=== PATIENT | female | born 1970 | race Hispanic/Latino ===

== ENCOUNTER 2023-01-14 11:07 | Inpatient (IN) | payer OTHER ==
[~2023-01-14] VITALS: Ht 139.7 cm; Wt 90.7 kg
[~2023-01-14 11:07] MED LIST: HEPARIN 10,000 UNIT/10ML (1,000 UNIT/ML) VIAL IV ONE; LIDOCAINE HCL 1% 10 ML VIAL MISC ONE
[2023-01-14 14:00] VITALS: BP 137/63; PULSE 63; RESP 18
[2023-01-14 14:10] VITALS: O2SAT 100
[2023-01-14] MEDS ORDERED: ZOLPIDEM TARTRATE 5 MG TAB PO PRN (14:30)
[2023-01-14] MEDS ORDERED: NITROGLYCERIN 0.4 MG SL TAB SL PRN (14:30)
[2023-01-14] MEDS ORDERED: LACTULOSE 20 GM/30 ML UDCUP PO PRN (14:30)
[2023-01-14] MEDS ORDERED: DiphenhydrAMINE HCL 50 MG/ML VIAL IV PRN (14:30)
[2023-01-14] MEDS ORDERED: POTASSIUM CHLORIDE 20MEQ/100ML 100 ML IV PRN ×2 (14:30)
[2023-01-14] MEDS ORDERED: ALBUTEROL 0.083% 2.5 MG/3 ML INH IH PRN (14:30)
[2023-01-14] MEDS ORDERED: ONDANSETRON 4MG INJ IV PRN (14:30)
[2023-01-14] MEDS ORDERED: DEXTROSE 50%-WATER 50 ML DISP.SYRIN IV PRN (14:30)
[2023-01-14] MEDS ORDERED: HYDRALAZINE 25MG TABLET PO PRN (14:30)
[2023-01-14] MEDS ORDERED: ALPRAZOLAM 0.5 MG TABLET PO PRN (14:30)
[2023-01-14] MEDS ORDERED: GUAIFENESIN SUGAR-FREE 100 MG/5 ML UDCUP PO PRN (14:30)
[2023-01-14] MEDS ORDERED: DOCUSATE SODIUM 100 MG CAP PO PRN (14:30)
[2023-01-14] MEDS ORDERED: GUAIFENESIN-DM 200/20 MG 10 ML PO PRN (14:30)
[2023-01-14] MEDS ORDERED: ACETAMINOPHEN 325 MG TAB PO PRN (14:30)
[2023-01-14] MEDS ORDERED: DIPHENHYDRAMINE HCL 25 MG CAPSULE PO PRN (14:30)
[2023-01-14] MEDS ORDERED: LOPERAMIDE HCL 2 MG CAP PO PRN (14:30)
[2023-01-14] MEDS ORDERED: POLYETHYLENE GLYCOL 3350 17 GM POWD.PACK PO PRN (14:30)
[2023-01-14] MEDS ORDERED: GLUCAGON 1MG KIT 1 MG ML IM PRN (14:30)
[2023-01-14] MEDS ORDERED: POTASSIUM CHLORIDE 10% ELIXIR 20 MEQ/15 ML UDCUP PO PRN (14:30)
[2023-01-14 15:04] LABS: BASOPHILS % (AUTO) 0.3 % (0.0-5.0); HEMATOCRIT 35.9 % (36-48); LYMPHOCYTES % (AUTO) 27.1 % (21.0-51.0); MEAN CORPUSCULAR HEMOGLOBIN 27.3 pg (27.0-33.0); MEAN CORPUSCULAR HGB CONC 32.9 g/dL (32.0-36.0); MEAN CORPUSCULAR VOLUME 83.1 fL (79-99); NEUTROPHILS % (AUTO) 64.1 % (40.0-77.0); PLATELET COUNT (AUTO) 230 K/uL (130-400); RED BLOOD CELL COUNT(AUTO) 4.32 MIL/uL (4.00-5.50); RED CELL DISTRIBUTION WIDTH 14.7 % (11.0-15.5); WHITE BLOOD COUNT (AUTO) 10.5 K/uL (4.8-10.8)
[2023-01-14] MEDS ORDERED: LOSA50TA64 PO (15:09)
[2023-01-14] MEDS ORDERED: AMLO-257 PO (15:09)
[2023-01-14] MEDS ORDERED: METF-444 PO (15:09)
[2023-01-14] MEDS ORDERED: [UNRECOGNIZED DRUG - OTHER] PO (15:09)
[2023-01-14] MEDS: HEPARIN 25,000 UNITS/250ML D5W 250 ML IV SCH (15:35)
[2023-01-14 15:38] LABS: CREATININE 0.6 mg/dL (0.5-1.5); POTASSIUM 3.8 mmol/L (3.5-5.1); THYROID STIMULATING HORMONE 0.01 uIU/mL (0.36-3.74)
[2023-01-14 15:51] LABS: ALBUMIN 3.6 g/dL (3.5-5.0); MAGNESIUM 1.8 mg/dL (1.80-2.40); PHOSPHORUS 3.9 mg/dL (2.5-4.9); TOTAL PROTEIN, SERUM 7.4 g/dL (6.0-8.3)
[2023-01-14] MEDS: MAGNESIUM 2GM PREMIX 50ML 50 ML IV PRN (16:34)
[2023-01-14 16:45] VITALS: BP 131/63; PULSE 63; RESP 20
[2023-01-14] MEDS: INSULIN HUMULIN R 100 UNIT/ML 3ML SQ SCH ×2 (17:13→21:42)
[2023-01-14 20:00] VITALS: O2SAT 100
[2023-01-14 20:02] VITALS: BP 144/75; PULSE 71; RESP 20
[2023-01-14] MEDS: FAMOTIDINE 20MG VIAL IV SCH (20:21)
[2023-01-14] MEDS: ATORVASTATIN 40 MG TABLET PO SCH (20:21)
[2023-01-14] MEDS: CARVEDILOL 3.125 MG TABLET PO SCH (20:22)
[2023-01-14] MEDS: ACETAMINOPHEN 325 MG TAB PO PRN (20:22)
[2023-01-14] MEDS ORDERED: INSULIN GLARGINE 100 UNITS/ML 10 ML VIAL SQ ONE (21:00)
[2023-01-14 23:43] VITALS: BP 130/68; PULSE 58; RESP 20
[2023-01-15] VITALS (7 sets, daily range): BP systolic 129–157; BP diastolic 72–77; PULSE 57–73; RESP 16–20; O2SAT 98–100
[2023-01-15] MEDS: NITROGLYCERIN 1GM OINT 1 INCH/1GM TD SCH ×4 (01:09→17:48)
[2023-01-15] MEDS: MAGNESIUM 2GM PREMIX 50ML 50 ML IV PRN (06:18)
[2023-01-15] MEDS: INSULIN HUMULIN R 100 UNIT/ML 3ML SQ SCH ×4 (06:18→20:42)
[2023-01-15] MEDS: LISINOPRIL 10 MG TABLET PO SCH (08:24)
[2023-01-15] MEDS: ASPIRIN 81MG CHEW TAB PO SCH (08:25)
[2023-01-15] MEDS: CARVEDILOL 3.125 MG TABLET PO SCH ×2 (08:25→20:42)
[2023-01-15] MEDS: DOCUSATE SODIUM 100 MG CAP PO SCH (08:26)
[2023-01-15] MEDS: POLYETHYLENE GLYCOL 3350 17 GM POWD.PACK PO SCH (08:26)
[2023-01-15] MEDS: FAMOTIDINE 20MG VIAL IV SCH ×2 (09:34→20:41)
[2023-01-15] MEDS: HEPARIN 25,000 UNITS/250ML D5W 250 ML IV SCH (15:23)
[2023-01-15] MEDS: ATORVASTATIN 40 MG TABLET PO SCH (20:41)
[2023-01-16] VITALS (9 sets, daily range): BP systolic 114–155; BP diastolic 57–77; PULSE 55–72; RESP 18–20; O2SAT 96–98
[2023-01-16] MEDS: NITROGLYCERIN 1GM OINT 1 INCH/1GM TD SCH ×4 (00:16→18:45)
[2023-01-16] MEDS: INSULIN HUMULIN R 100 UNIT/ML 3ML SQ SCH ×4 (06:19→20:54)
[2023-01-16] MEDS: FAMOTIDINE 20MG VIAL IV SCH ×2 (07:47→20:49)
[2023-01-16] MEDS: DOCUSATE SODIUM 100 MG CAP PO SCH (07:47)
[2023-01-16] MEDS: POLYETHYLENE GLYCOL 3350 17 GM POWD.PACK PO SCH (07:47)
[2023-01-16] MEDS: ASPIRIN 81MG CHEW TAB PO SCH (07:48)
[2023-01-16] MEDS: LISINOPRIL 10 MG TABLET PO SCH (07:48)
[2023-01-16] MEDS: CARVEDILOL 3.125 MG TABLET PO SCH ×2 (12:23→20:48)
[2023-01-16] MEDS: HEPARIN 25,000 UNITS/250ML D5W 250 ML IV SCH (15:18)
[2023-01-16] MEDS: ATORVASTATIN 40 MG TABLET PO SCH (20:49)
[2023-01-17] VITALS (10 sets, daily range): BP systolic 119–177; BP diastolic 62–83; PULSE 55–80; RESP 18–20; O2SAT 96–98
[2023-01-17] MEDS: NITROGLYCERIN 1GM OINT 1 INCH/1GM TD SCH ×5 (00:19→23:45)
[2023-01-17 00:38] LABS: INR 0.94 (0.85-1.15)
[2023-01-17 00:39] LABS: PARTIAL THROMBOPLASTIN TIME 57.1 SEC (26.3-35.5)
[2023-01-17 03:50] LABS: BASOPHILS % (AUTO) 0.2 % (0.0-5.0); EOSINOPHILS % (AUTO) 1.7 % (0.0-8.0); HEMATOCRIT 30.6 % (36-48); LYMPHOCYTES % (AUTO) 23.2 % (21.0-51.0); MEAN CORPUSCULAR HEMOGLOBIN 27.5 pg (27.0-33.0); MEAN CORPUSCULAR VOLUME 83.4 fL (79-99); MONOCYTES % (AUTO) 8.9 % (3.0-13.0); NEUTROPHILS % (AUTO) 65.7 % (40.0-77.0); PLATELET COUNT (AUTO) 219 K/uL (130-400); RED BLOOD CELL COUNT(AUTO) 3.67 MIL/uL (4.00-5.50); RED CELL DISTRIBUTION WIDTH 14.8 % (11.0-15.5); WHITE BLOOD COUNT (AUTO) 10.6 K/uL (4.8-10.8)
[2023-01-17 03:57] LABS: CREATININE 0.5 mg/dL (0.5-1.5); POTASSIUM 3.8 mmol/L (3.5-5.1)
[2023-01-17 04:01] LABS: INR 0.97 (0.85-1.15); PROTHROMBIN TIME 11.3 SEC (9.6-11.6)
[2023-01-17 04:02] LABS: PARTIAL THROMBOPLASTIN TIME 66.7 SEC (26.3-35.5)
[2023-01-17] MEDS: KCL 20 MEQ ERTAB PO PRN (05:36)
[2023-01-17] MEDS: INSULIN HUMULIN R 100 UNIT/ML 3ML SQ SCH ×4 (06:57→20:39)
[2023-01-17] MEDS: FAMOTIDINE 20MG VIAL IV SCH ×2 (08:02→20:09)
[2023-01-17] MEDS: POLYETHYLENE GLYCOL 3350 17 GM POWD.PACK PO SCH (08:02)
[2023-01-17] MEDS: LISINOPRIL 10 MG TABLET PO SCH (08:03)
[2023-01-17] MEDS: CARVEDILOL 3.125 MG TABLET PO SCH ×2 (08:03→20:12)
[2023-01-17] MEDS: DOCUSATE SODIUM 100 MG CAP PO SCH (08:03)
[2023-01-17] MEDS: ASPIRIN 81MG CHEW TAB PO SCH (08:04)
[2023-01-17 10:03] LABS: HEMOGLOBIN A1C 8.9 % (4.0-6.0)
[2023-01-17] MEDS: HEPARIN 25,000 UNITS/250ML D5W 250 ML IV SCH (17:06)
[2023-01-17] MEDS: ATORVASTATIN 40 MG TABLET PO SCH (20:09)
[2023-01-17] MEDS: ACETAMINOPHEN 325 MG TAB PO PRN (20:16)
[2023-01-18] VITALS (37 sets, daily range): BP systolic 99–158; BP diastolic 49–82; PULSE 54–80; RESP 7–20; TEMP 98.3–100.3; O2SAT 98–100
[2023-01-18 03:53] LABS: CREATININE 0.5 mg/dL (0.5-1.5); POTASSIUM 3.7 mmol/L (3.5-5.1)
[2023-01-18 03:54] LABS: HEMATOCRIT 31.3 % (36-48); MEAN CORPUSCULAR HEMOGLOBIN 27.8 pg (27.0-33.0); MEAN CORPUSCULAR HGB CONC 32.6 g/dL (32.0-36.0); MEAN CORPUSCULAR VOLUME 85.3 fL (79-99); RED BLOOD CELL COUNT(AUTO) 3.67 MIL/uL (4.00-5.50); RED CELL DISTRIBUTION WIDTH 14.8 % (11.0-15.5); WHITE BLOOD COUNT (AUTO) 8.2 K/uL (4.8-10.8)
[2023-01-18 03:57] LABS: TOTAL PROTEIN, SERUM 6.4 g/dL (6.0-8.3)
[2023-01-18 04:01] LABS: INR 0.98 (0.85-1.15); PROTHROMBIN TIME 11.4 SEC (9.6-11.6)
[2023-01-18 04:02] LABS: PARTIAL THROMBOPLASTIN TIME 68.2 SEC (26.3-35.5)
[2023-01-18] MEDS: NITROGLYCERIN 1GM OINT 1 INCH/1GM TD SCH (05:43)
[2023-01-18] MEDS: KCL 20 MEQ ERTAB PO PRN (05:47)
[2023-01-18] MEDS: INSULIN HUMULIN R 100 UNIT/ML 3ML SQ SCH (07:30)
[2023-01-18] MEDS ORDERED: EPINEPHRINE 10 MG in 0.9% NACL 250ML IV PRN (07:30)
[2023-01-18] MEDS ORDERED: NOREPINEPHRINE BITARTRATE 8 MG in 0.9% NACL 250ML 250 ML IV PRN (07:30)
[2023-01-18] MEDS ORDERED: CEFAZOLIN SODIUM 1 GM VIAL ONE (07:48)
[2023-01-18] MEDS ORDERED: PAPAVERINE HCL 30 MG/ML 2ML VIAL ONE (07:49)
[2023-01-18] MEDS ORDERED: NITROGLYCERIN 50MG/D5W 250ML 1 BOT ONE (07:49)
[2023-01-18] MEDS: CARVEDILOL 3.125 MG TABLET PO SCH (07:51)
[2023-01-18] MEDS: POLYETHYLENE GLYCOL 3350 17 GM POWD.PACK PO SCH (07:52)
[2023-01-18] MEDS: LISINOPRIL 10 MG TABLET PO SCH (07:52)
[2023-01-18] MEDS: FAMOTIDINE 20MG VIAL IV SCH ×2 (07:52→22:41)
[2023-01-18] MEDS: DOCUSATE SODIUM 100 MG CAP PO SCH (07:52)
[2023-01-18] MEDS: ASPIRIN 81MG CHEW TAB PO SCH (07:52)
[2023-01-18] MEDS ORDERED: AMINOCAPROIC ACID 5,000MG VIAL 15,000 MG in 0.9% NACL 500ML IV.SOLN 420 ML IV PRN (08:00)
[2023-01-18] MEDS ORDERED: 0.9%NACL 1000ML 1,000 ML IV ONE (08:36)
[2023-01-18] MEDS ORDERED: AMLO-257 PO (10:07)
[2023-01-18] MEDS ORDERED: METF-910 PO (10:07)
[2023-01-18] MEDS ORDERED: LOSA50TA64 PO (10:07)
[2023-01-18] MEDS ORDERED: AMINOCAPROIC ACID 5,000MG VIAL 15,000 MG in 0.9% NACL 250ML 250 ML IV SCH (11:30)
[2023-01-18] MEDS ORDERED: 0.9%NACL 1000ML 1,000 ML IV SCH (11:30)
[2023-01-18] MEDS ORDERED: ACETAMINOPHEN 650 MG SUPPOSITORY RC PRN (11:30)
[2023-01-18] MEDS ORDERED: ALBUMIN (HUMAN) 5% 250 ML IV PRN (11:30)
[2023-01-18] MEDS ORDERED: ACETAMINOPHEN 325 MG TAB PO PRN (11:30)
[2023-01-18] MEDS ORDERED: INSULIN REGULAR, HUMAN 3ML 100 UNIT in 0.9%NACL 100ML 99 ML IV SCH ×2 (11:30)
[2023-01-18] MEDS ORDERED: MORPHINE 2 MG SYG IV PRN (11:30)
[2023-01-18] MEDS ORDERED: POTASSIUM PHOS 15 mMOL+NS250ML 250 ML IV PRN (11:30)
[2023-01-18] MEDS ORDERED: PROPOFOL 1000 MG/100 ML 100 ML IV PRN (11:30)
[2023-01-18] MEDS ORDERED: EPINEPHRINE PF 1MG (1:1,000) 10 MG in 0.9% NACL 250ML 240 ML IV PRN (11:30)
[2023-01-18] MEDS ORDERED: MORPHINE 4 MG SYG IV PRN (11:30)
[2023-01-18] MEDS ORDERED: GLUCAGON 1MG KIT 1 MG ML IM PRN (11:30)
[2023-01-18] MEDS ORDERED: ONDANSETRON 4MG INJ IV PRN (11:30)
[2023-01-18] MEDS ORDERED: DEXTROSE 50%-WATER 50 ML DISP.SYRIN IV PRN (11:30)
[2023-01-18] MEDS ORDERED: 0.9%NACL 10ML VIAL IVP PRN (11:30)
[2023-01-18] MEDS ORDERED: NITROGLYCERIN 50MG/D5W 250ML 250 BOT IV SCH (11:30)
[2023-01-18] MEDS ORDERED: NOREPINEPHRIN 4MG/NS 250ML 250 ML IV PRN (11:30)
[2023-01-18] MEDS ORDERED: 0.9% NACL 500ML IV.SOLN 500 ML IV SCH (11:30)
[2023-01-18] MEDS ORDERED: FENTANYL CITRATE PF 50 MCG/1 ML 20ML VIAL IJ ONE (11:38)
[2023-01-18] MEDS ORDERED: ESMOLOL HCL 10 MG/ML 10 ML VIAL ONE (11:38)
[2023-01-18] MEDS ORDERED: AMINOCAPROIC ACID 5,000MG VIAL ONE (11:38)
[2023-01-18] MEDS ORDERED: SODIUM BICARB 50MEQ 50ML VIAL 150 ML ONE (11:38)
[2023-01-18] MEDS ORDERED: MIDAZOLAM HCL 1 MG/ML 2ML VIAL ONE (11:38)
[2023-01-18] MEDS ORDERED: LIDOCAINE PF 100MG/5ML (2%) SYRINGE 5ML ONE (11:38)
[2023-01-18] MEDS ORDERED: PROPOFOL 10 MG/ML 20ML VIAL IV ONE (11:38)
[2023-01-18] MEDS ORDERED: HEPARIN 10,000 UNIT/10ML (1,000 UNIT/ML) VIAL ONE (11:38)
[2023-01-18] MEDS ORDERED: NOREPINEPHRINE BITARTRATE 1 MG/1 ML ML IV ONE (11:38)
[2023-01-18] MEDS ORDERED: EPINEPHRINE PF 1MG (1:1,000) 1 MG/ML AMP ONE (11:38)
[2023-01-18] MEDS ORDERED: ROCURONIUM 10MG/1ML SYR 10 MG/ML ML ONE (11:39)
[2023-01-18] MEDS ORDERED: KETAMINE 50MG/ML SYRINGE 50 MG/ML DISP.SYRIN ONE ×2 (11:42→14:10)
[2023-01-18] MEDS: CEFAZOLIN SODIUM 2 GM VIAL IVPB SCH ×4 (12:00→22:45)
[2023-01-18] MEDS ORDERED: INSULIN HUMULIN R 100 UNIT/ML 3ML ONE (14:55)
[2023-01-18] MEDS ORDERED: ASPIRIN 81MG CHEW TAB NG ONE (15:00)
[2023-01-18 15:43] LABS: ABG BASE EXCESS -4.1 mmol/L (-2.0-3.0); ABG HCO3 20.5 mmol/L (21.0-28.0); ABG OXYGEN SATURATION 99.2 % (95.0-99.0); ABG PCO2 36 mmHg (32-45)
[2023-01-18 15:46] LABS: HEMATOCRIT 28.3 % (36-48); MEAN CORPUSCULAR HEMOGLOBIN 27.8 pg (27.0-33.0); MEAN CORPUSCULAR HGB CONC 32.2 g/dL (32.0-36.0); MEAN CORPUSCULAR VOLUME 86.5 fL (79-99); RED BLOOD CELL COUNT(AUTO) 3.27 MIL/uL (4.00-5.50); RED CELL DISTRIBUTION WIDTH 15.1 % (11.0-15.5); WHITE BLOOD COUNT (AUTO) 24.1 K/uL (4.8-10.8)
[2023-01-18] MEDS: SODIUM BICARB 50MEQ 50ML VIAL IV PRN (15:50)
[2023-01-18] MEDS: POTASSIUM CHLORIDE 20MEQ/100ML 100 ML IV PRN ×5 (15:52→22:45)
[2023-01-18 16:00] LABS: INR 1.06 (0.85-1.15); PROTHROMBIN TIME 12.2 SEC (9.6-11.6)
[2023-01-18 16:01] LABS: PARTIAL THROMBOPLASTIN TIME 22.5 SEC (26.3-35.5)
[2023-01-18 16:03] LABS: CREATININE 0.8 mg/dL (0.5-1.5); MAGNESIUM 1.2 mg/dL (1.80-2.40); PHOSPHORUS 3.6 mg/dL (2.5-4.9); POTASSIUM 3.3 mmol/L (3.5-5.1)
[2023-01-18] MEDS: MAGNESIUM 2GM PREMIX 50ML 50 ML IV PRN (16:20)
[2023-01-18 16:49] LABS: ABG BASE EXCESS 2.8 mmol/L (-2.0-3.0); ABG HCO3 25.7 mmol/L (21.0-28.0); ABG OXYGEN SATURATION 98.8 % (95.0-99.0); ABG PCO2 33 mmHg (32-45)
[2023-01-18 19:09] LABS: ABG BASE EXCESS 3.6 mmol/L (-2.0-3.0); ABG HCO3 26.8 mmol/L (21.0-28.0); ABG PCO2 35 mmHg (32-45)
[2023-01-18 20:12] LABS: ABG BASE EXCESS 1.1 mmol/L (-2.0-3.0); ABG HCO3 24.7 mmol/L (21.0-28.0); ABG OXYGEN SATURATION 98.2 % (95.0-99.0); ABG PCO2 35 mmHg (32-45)
[2023-01-18 21:31] LABS: ABG BASE EXCESS 0.3 mmol/L (-2.0-3.0); ABG OXYGEN SATURATION 98.2 % (95.0-99.0); ABG PCO2 35 mmHg (32-45)
[2023-01-18 22:38] LABS: ABG BASE EXCESS 0.1 mmol/L (-2.0-3.0); ABG HCO3 23.7 mmol/L (21.0-28.0); ABG PCO2 35 mmHg (32-45)
[2023-01-18] MEDS: ACETAMINOPHEN 325 MG TAB PO PRN (22:41)
[2023-01-18] MEDS: ATORVASTATIN 40 MG TABLET PO SCH (22:42)
[2023-01-18 23:43] LABS: ABG BASE EXCESS -1.2 mmol/L (-2.0-3.0); ABG HCO3 22.3 mmol/L (21.0-28.0); ABG OXYGEN SATURATION 98.1 % (95.0-99.0); ABG PCO2 33 mmHg (32-45)
[2023-01-19] VITALS (86 sets, daily range): BP systolic 91–156; BP diastolic 42–88; PULSE 64–79; RESP 9–57; TEMP 98.6–100.3; O2SAT 95–99
[2023-01-19] MEDS: SODIUM BICARB 50MEQ 50ML VIAL IV PRN (00:05)
[2023-01-19 02:16] LABS: ABG BASE EXCESS 2.5 mmol/L (-2.0-3.0); ABG HCO3 26.6 mmol/L (21.0-28.0); ABG OXYGEN SATURATION 98.2 % (95.0-99.0); ABG PCO2 39 mmHg (32-45)
[2023-01-19] MEDS: TRAMADOL HCL 50 MG TABLET PO PRN ×2 (04:01→18:52)
[2023-01-19 05:05] LABS: HEMATOCRIT 30.6 % (36-48); MEAN CORPUSCULAR HEMOGLOBIN 27.8 pg (27.0-33.0); MEAN CORPUSCULAR HGB CONC 32.4 g/dL (32.0-36.0); RED BLOOD CELL COUNT(AUTO) 3.56 MIL/uL (4.00-5.50); RED CELL DISTRIBUTION WIDTH 15.5 % (11.0-15.5); WHITE BLOOD COUNT (AUTO) 20.9 K/uL (4.8-10.8)
[2023-01-19 05:13] LABS: INR 0.98 (0.85-1.15); PROTHROMBIN TIME 11.4 SEC (9.6-11.6)
[2023-01-19 05:15] LABS: CREATININE 0.5 mg/dL (0.5-1.5); MAGNESIUM 1.6 mg/dL (1.80-2.40); PHOSPHORUS 4.3 mg/dL (2.5-4.9)
[2023-01-19 05:19] LABS: ABG BASE EXCESS 0.1 mmol/L (-2.0-3.0); ABG HCO3 24.5 mmol/L (21.0-28.0); ABG PCO2 39 mmHg (32-45)
[2023-01-19] MEDS: MAGNESIUM 2GM PREMIX 50ML 50 ML IV PRN ×2 (05:22→14:01)
[2023-01-19] MEDS: CALCIUM GLUC 1GM 1 GM in 0.9%NACL 50ML 50 ML IV PRN (05:22)
[2023-01-19] MEDS: POTASSIUM CHLORIDE 20MEQ/100ML 100 ML IV PRN ×2 (05:23→15:35)
[2023-01-19] MEDS: CEFAZOLIN SODIUM 2 GM VIAL IVPB SCH (07:57)
[2023-01-19] MEDS: ASPIRIN 81MG CHEW TAB PO SCH (08:02)
[2023-01-19] MEDS: DOCUSATE SODIUM 100 MG CAP PO SCH (08:02)
[2023-01-19] MEDS: FUROSEMIDE 20MG VIAL IV SCH ×2 (08:02→20:49)
[2023-01-19] MEDS: POLYETHYLENE GLYCOL 3350 17 GM POWD.PACK PO SCH (08:02)
[2023-01-19] MEDS: FAMOTIDINE 20MG VIAL IV SCH ×2 (08:03→20:50)
[2023-01-19 11:14] LABS: MAGNESIUM 1.7 mg/dL (1.80-2.40); POTASSIUM 3.6 mmol/L (3.5-5.1)
[2023-01-19] MEDS ORDERED: METOPROLOL TARTRATE 25 MG TAB PO ONE (12:30)
[2023-01-19] MEDS: ACETAMINOPHEN 325 MG TAB PO PRN (12:57)
[2023-01-19 17:13] LABS: MAGNESIUM 2.2 mg/dL (1.80-2.40); POTASSIUM 4.3 mmol/L (3.5-5.1)
[2023-01-19] MEDS: METOPROLOL TARTRATE 25 MG TAB PO SCH (20:49)
[2023-01-19] MEDS: ATORVASTATIN 40 MG TABLET PO SCH (20:50)
[2023-01-19] MEDS ORDERED: METOPROLOL TARTRATE 25 MG TAB PO SCH (21:00)
[2023-01-20] VITALS (22 sets, daily range): BP systolic 112–153; BP diastolic 32–90; PULSE 66–89; RESP 18–29; TEMP 98.3–100; O2SAT 93–97
[2023-01-20] MEDS: TRAMADOL HCL 50 MG TABLET PO PRN ×2 (04:41→17:48)
[2023-01-20 05:03] LABS: BASOPHILS % (AUTO) 0.1 % (0.0-5.0); HEMATOCRIT 27.8 % (36-48); LYMPHOCYTES % (AUTO) 11.5 % (21.0-51.0); MEAN CORPUSCULAR HEMOGLOBIN 27.8 pg (27.0-33.0); MEAN CORPUSCULAR HGB CONC 31.7 g/dL (32.0-36.0); MONOCYTES % (AUTO) 9.6 % (3.0-13.0); NEUTROPHILS % (AUTO) 78.2 % (40.0-77.0); PLATELET COUNT (AUTO) 170 K/uL (130-400); RED BLOOD CELL COUNT(AUTO) 3.16 MIL/uL (4.00-5.50); RED CELL DISTRIBUTION WIDTH 15.7 % (11.0-15.5); WHITE BLOOD COUNT (AUTO) 16.3 K/uL (4.8-10.8)
[2023-01-20 05:43] LABS: CREATININE 0.6 mg/dL (0.5-1.5); MAGNESIUM 1.8 mg/dL (1.80-2.40); POTASSIUM 3.7 mmol/L (3.5-5.1)
[2023-01-20] MEDS ORDERED: CALCIUM GLUC 1GM/10ML VIAL ONE (06:12)
[2023-01-20] MEDS: MAGNESIUM 2GM PREMIX 50ML 50 ML IV PRN ×2 (06:17→12:17)
[2023-01-20] MEDS: CALCIUM GLUC 1GM 1 GM in 0.9%NACL 50ML 50 ML IV PRN ×2 (06:18→12:00)
[2023-01-20] MEDS: POTASSIUM CHLORIDE 20MEQ/100ML 100 ML IV PRN (06:18)
[2023-01-20] MEDS: FUROSEMIDE 20 MG TABLET PO SCH ×2 (08:56→17:21)
[2023-01-20] MEDS: ASPIRIN 81MG CHEW TAB PO SCH (08:57)
[2023-01-20] MEDS: FAMOTIDINE 20MG TAB PO SCH ×2 (08:57→22:49)
[2023-01-20] MEDS: METOPROLOL TARTRATE 25 MG TAB PO SCH ×2 (08:57→22:49)
[2023-01-20] MEDS: DOCUSATE SODIUM 100 MG CAP PO SCH (08:57)
[2023-01-20] MEDS: POLYETHYLENE GLYCOL 3350 17 GM POWD.PACK PO SCH (08:57)
[2023-01-20] MEDS ORDERED: METOPROLOL TARTRATE 25 MG TAB PO SCH (09:00)
[2023-01-20] MEDS: INSULIN HUMULIN R 100 UNIT/ML 3ML SQ SCH ×3 (11:18→22:51)
[2023-01-20 11:25] LABS: MAGNESIUM 1.7 mg/dL (1.80-2.40); POTASSIUM 4.3 mmol/L (3.5-5.1)
[2023-01-20] MEDS: ATORVASTATIN 40 MG TABLET PO SCH (22:49)
[2023-01-21] VITALS (10 sets, daily range): BP systolic 112–147; BP diastolic 60–80; PULSE 70–96; RESP 18–20; O2SAT 95–100
[2023-01-21 06:21] LABS: HEMATOCRIT 26.4 % (36-48); MEAN CORPUSCULAR HEMOGLOBIN 27.8 pg (27.0-33.0); MEAN CORPUSCULAR HGB CONC 32.2 g/dL (32.0-36.0); MEAN CORPUSCULAR VOLUME 86.3 fL (79-99); RED BLOOD CELL COUNT(AUTO) 3.06 MIL/uL (4.00-5.50); RED CELL DISTRIBUTION WIDTH 15.3 % (11.0-15.5); WHITE BLOOD COUNT (AUTO) 15.6 K/uL (4.8-10.8)
[2023-01-21] MEDS: INSULIN HUMULIN R 100 UNIT/ML 3ML SQ SCH ×4 (06:29→21:17)
[2023-01-21 06:44] LABS: CREATININE 0.5 mg/dL (0.5-1.5); POTASSIUM 3.8 mmol/L (3.5-5.1)
[2023-01-21] MEDS: TRAMADOL HCL 50 MG TABLET PO PRN ×2 (07:35→16:51)
[2023-01-21] MEDS: FAMOTIDINE 20MG TAB PO SCH ×2 (07:36→21:15)
[2023-01-21] MEDS: ASPIRIN 81MG CHEW TAB PO SCH (07:36)
[2023-01-21] MEDS: METOPROLOL TARTRATE 25 MG TAB PO SCH ×2 (07:37→21:15)
[2023-01-21] MEDS: FUROSEMIDE 20 MG TABLET PO SCH ×2 (07:37→16:49)
[2023-01-21] MEDS: DOCUSATE SODIUM 100 MG CAP PO SCH (07:37)
[2023-01-21] MEDS: POLYETHYLENE GLYCOL 3350 17 GM POWD.PACK PO SCH (07:37)
[2023-01-21] MEDS: POTASSIUM CHLORIDE 20MEQ/100ML 100 ML IV PRN (08:33)
[2023-01-21] MEDS ORDERED: POTASSIUM CHLORIDE 10% ELIXIR 20 MEQ/15 ML UDCUP PO PRN (11:00)
[2023-01-21] MEDS ORDERED: POTASSIUM CHLORIDE 20MEQ/100ML 100 ML IV PRN (11:00)
[2023-01-21] MEDS: ATORVASTATIN 40 MG TABLET PO SCH (21:16)
[2023-01-22] VITALS (7 sets, daily range): BP systolic 120–132; BP diastolic 60–76; PULSE 71–90; RESP 18–24; O2SAT 96–100
[2023-01-22 03:39] LABS: HEMATOCRIT 25.6 % (36-48); MEAN CORPUSCULAR HEMOGLOBIN 27.8 pg (27.0-33.0); MEAN CORPUSCULAR HGB CONC 32.4 g/dL (32.0-36.0); MEAN CORPUSCULAR VOLUME 85.6 fL (79-99); RED BLOOD CELL COUNT(AUTO) 2.99 MIL/uL (4.00-5.50); RED CELL DISTRIBUTION WIDTH 14.9 % (11.0-15.5); WHITE BLOOD COUNT (AUTO) 12.4 K/uL (4.8-10.8)
[2023-01-22 03:52] LABS: CREATININE 0.6 mg/dL (0.5-1.5); POTASSIUM 3.5 mmol/L (3.5-5.1)
[2023-01-22] MEDS: TRAMADOL HCL 50 MG TABLET PO PRN (04:39)
[2023-01-22] MEDS: KCL 20 MEQ ERTAB PO PRN ×2 (05:41→14:28)
[2023-01-22] MEDS: INSULIN HUMULIN R 100 UNIT/ML 3ML SQ SCH ×4 (05:43→19:56)
[2023-01-22] MEDS: FUROSEMIDE 20 MG TABLET PO SCH ×2 (10:39→17:41)
[2023-01-22] MEDS: FAMOTIDINE 20MG TAB PO SCH ×2 (10:39→19:56)
[2023-01-22] MEDS: POLYETHYLENE GLYCOL 3350 17 GM POWD.PACK PO SCH (10:39)
[2023-01-22] MEDS: ASPIRIN 81MG CHEW TAB PO SCH (10:39)
[2023-01-22] MEDS: METOPROLOL TARTRATE 25 MG TAB PO SCH ×2 (10:39→19:56)
[2023-01-22] MEDS: DOCUSATE SODIUM 100 MG CAP PO SCH (10:39)
[2023-01-22] MEDS ORDERED: ASPI-1197 PO (18:20)
[2023-01-22] MEDS: ATORVASTATIN 40 MG TABLET PO SCH (19:56)
[2023-01-22] MEDS ORDERED: METFORMIN HCL 500 MG TABLET PO SCH (21:00)
== END 2023-01-22 20:10 | disposition home or self-care (01) | DRG 235 ==
LOC: 2AH 13:52 → 2CV 01-18 09:20 → 2AH 01-20 12:28
PROVIDERS: ADMIT Internal Medicine; ATTEND Internal Medicine
PROC: 02100Z9 Bypass Coronary Artery, One Artery from Left Internal Mammary, Open Approach (ICD-10-PCS; principal; 2023-01-18 11:39)
PROC: 021109W Bypass Coronary Artery, Two Arteries from Aorta with Autologous Venous Tissue, Open Approach (ICD-10-PCS; 2023-01-18 11:39)
PROC: 06BQ4ZZ Excision of Left Saphenous Vein, Percutaneous Endoscopic Approach (ICD-10-PCS; 2023-01-18 11:39)
PROC: 0PH000Z Insertion of Rigid Plate Internal Fixation Device into Sternum, Open Approach (ICD-10-PCS; 2023-01-18 11:39)
DX: I25.10 Atherosclerotic heart disease of native coronary artery without angina pectoris (principal); I21.4 Non-ST elevation (NSTEMI) myocardial infarction; J95.1 Acute pulmonary insufficiency following thoracic surgery; I16.1 Hypertensive emergency; Z68.42 Body mass index [BMI] 45.0-49.9, adult; Z20.822 Contact with and (suspected) exposure to COVID-19; D72.829 Elevated white blood cell count, unspecified; E11.65 Type 2 diabetes mellitus with hyperglycemia; E66.01 Morbid (severe) obesity due to excess calories; E78.00 Pure hypercholesterolemia, unspecified; K59.00 Constipation, unspecified; I10 Essential (primary) hypertension; I25.2 Old myocardial infarction; Z79.899 Other long term (current) drug therapy
CPT/HCPCS: 36415; 71045; 80048; 80053; 80061; 82330; 82435; 82803; 82947; 82948; 83036; 83605; 83735; 83880; 84100; 84132; 84295; 84443; 84484; 84703; 85018; 85025; 85027; 85347; 85610; 85730; 86850; 86900; 86901; 86923; 87635; 87641; 93005; 93306; 93312; 93880; 94002; 94150; 94760; 97039; A7048; G0378; J0171; J0610; J0690; J1644; J1815; J1940; J2001; J2250; J2440; J2704; J3010; J3475; J3480; J3490; J7030; J7040; J7120; A4215; A4216; A4222; A4223; A4315; A4452; A4649; A6204; A6219; A9900; C1713; C1729; C1776